=== PATIENT | male | born 1965 | race Caucasian/White ===

== ENCOUNTER 2020-11-06 14:43 | Emergency (ER) | payer OTHER ==
[2020-11-06 15:05] VITALS: BP 131/71; PULSE 83; TEMP 98.6; BMI 27.1
[2020-11-06] MEDS ORDERED: DEXAMETHASONE SOD PHOSPHATE 10 MG/1 ML VIAL IM ONE (15:48)
[2020-11-06] MEDS ORDERED: DEXAMETHASONE SOD PHOSPHATE 10 MG/1 ML VIAL ONE (15:50)
[2020-11-06 16:10] LABS: THROAT:GRP A STREP ANTIGEN Negative (Negative)
== END 2020-11-06 16:56 | disposition home or self-care (01) ==
LOC: EDBD → JER 14:43
PROC: 3E023GC Introduction of Other Therapeutic Substance into Muscle, Percutaneous Approach (ICD-10-PCS; principal; 2020-11-06)
DX: R07.0 Pain in throat (principal)
CPT/HCPCS: 87070; 87880; 99284-25; C9803; J1100; U0003

== ENCOUNTER 2020-11-07 21:00 | Emergency (ER) | payer OTHER ==
[2020-11-07 21:21] VITALS: BMI 25.7
[2020-11-07] MEDS ORDERED: SODIUM CHLORIDE 0.9% 500 ML INFUS.BAG IV ONE (21:44)
[2020-11-07] MEDS ORDERED: DEXAMETHASONE SOD PHOSPHATE 10 MG/1 ML VIAL IVPUSH ONE (21:45)
[2020-11-07] MEDS ORDERED: KETOROLAC TROMETHAMINE 30 MG/1 ML VIAL IVPUSH ONE (21:58)
[2020-11-07] MEDS ORDERED: KETOROLAC TROMETHAMINE 30 MG/1 ML VIAL ONE (22:17)
[2020-11-07] MEDS ORDERED: DEXAMETHASONE SOD PHOSPHATE 10 MG/1 ML VIAL ONE (22:17)
[2020-11-07] MEDS ORDERED: BAMLANIVIMAB 700 MG in SODIUM CHLORIDE 180 ML IVPB ONE (22:22)
[2020-11-07 22:39] LABS: BASO % 0.3 % (0-2.0); HEMATOCRIT 43.6 % (35.4-49); HEMOGLOBIN 14.3 GM/dL (11.7-16.9); LYMPH % 11.8 % (8-40); MCH 28.7 pg (25.7-33.7); MCHC 32.8 g/dl (32.0-35.9); MEAN CELL VOLUME 87.4 fl (80-96); MONO % 6.1 % (3.8-10.2); NEUT % 81.8 % (42.8-82.8); PLATELET COUNT 414 K/MM3 (134-434); RBC 4.99 M/mm3 (4.00-5.60); RDW 13.8 % (11.9-15.9); WHITE BLOOD COUNT 10.7 K/mm3 (4.0-10.0)
[2020-11-07 22:55] LABS: INR 1.06 (0.83-1.09)
[2020-11-07 22:57] LABS: CHLORIDE 110 mmol/L (98-107); POTASSIUM 5.3 mmol/L (3.5-5.1); SODIUM 144 mmol/L (136-145)
[2020-11-07 22:59] LABS: CALCIUM 10.6 mg/dL (8.5-10.1)
[2020-11-07 23:00] LABS: ANION GAP 13 MMOL/L (8-16); BLOOD UREA NITROGEN 37.3 mg/dL (7-18); CO2 21 mmol/L (21-32); MAGNESIUM 2.4 mg/dL (1.8-2.4)
[2020-11-07 23:02] LABS: CREATININE 1.1 mg/dL (0.55-1.3); SGOT/AST 41 U/L (15-37); SGPT/ALT 25 U/L (13-61)
[2020-11-07 23:04] LABS: BILIRUBIN,TOTAL 0.6 mg/dL (0.2-1); LDH 473 U/L (87-246); TOT PROT 8.4 g/dl (6.4-8.2)
[2020-11-07 23:05] LABS: ALK PHOS 114 U/L (45-117)
[2020-11-07 23:08] LABS: N-TERMINAL BNP 29.7 pg/ml (5-125)
[2020-11-07 23:13] LABS: GLUCOSE,RANDOM 634 mg/dL (74-106)
[2020-11-07] MEDS ORDERED: INSULIN REGULAR HUMAN 100 UNITS/ML *VIAL SQ ONE (23:18)
[2020-11-08 01:49] VITALS: BP 129/80; PULSE 78; TEMP 98.4
[2020-11-08] MEDS ORDERED: INSULIN REGULAR HUMAN 100 UNITS/ML *VIAL SQ ONE (02:52)
== END 2020-11-08 11:25 | disposition home or self-care (01) ==
LOC: EDBD → JER 21:00 → JERFT 21:00
PROC: 3E0333Z Introduction of Anti-inflammatory into Peripheral Vein, Percutaneous Approach (ICD-10-PCS; principal; 2020-11-07)
PROC: 3E033GC Introduction of Other Therapeutic Substance into Peripheral Vein, Percutaneous Approach (ICD-10-PCS; 2020-11-07)
DX: Z11.59 Encounter for screening for other viral diseases (principal)
CPT/HCPCS: 36415; 71046-TC-FY; 80053; 82550; 82728; 82962; 83615; 83735; 83880; 84484; 85025; 85379; 85610; 86140; 93005; 93010; 99285-25; J1100; M0239; Q0239

== ENCOUNTER 2022-10-05 13:51 | Inpatient (IN) | payer OTHER ==
[2022-10-05] MEDS ORDERED: SODIUM CHLORIDE 1,000 ML IV STA ×2 (14:25→15:55)
[2022-10-05] MEDS ORDERED: ACETAMINOPHEN 1000 MG/100 ML BAG IVPB ONE (14:25)
[2022-10-05 14:37] LABS: EOS % 0.3 % (0-4.5); HEMATOCRIT 47.5 % (35.4-49); HEMOGLOBIN 14.9 GM/dL (11.7-16.9); LYMPH % 30.3 % (8-40); MCH 28.1 pg (25.7-33.7); MCHC 31.5 g/dl (32.0-35.9); MEAN CELL VOLUME 89.4 fl (80-96); MEAN PLT VOLUME 10.7 fl (7.5-11.1); MONO % 6.3 % (3.8-10.2); NEUT % 62.1 % (42.8-82.8); PLATELET COUNT 301 10^3/uL (134-434); RBC 5.31 M/mm3 (4.00-5.60); RDW 14.5 % (11.9-15.9); VENOUS BASE EXCESS 4.7 mmol/L (-2-2); VENOUS O2 SATURATION 89.8 % (70-80); VENOUS PCO2 43.6 mmHg (38-52); VENOUS PH 7.447 (7.310-7.410); WHITE BLOOD COUNT 10.3 K/mm3 (4.0-10.0)
[2022-10-05] MEDS ORDERED: ACETAMINOPHEN INJECTION 100 ML IVPB ONE (14:47)
[2022-10-05 15:03] LABS: CHLORIDE 116 mmol/L (98-107); SODIUM 154 mmol/L (136-145)
[2022-10-05 15:09] LABS: SGOT/AST 25 U/L (15-37)
[2022-10-05 15:10] LABS: BILIRUBIN,TOTAL 0.4 mg/dL (0.2-1); TOT PROT 7.6 g/dl (6.4-8.2)
[2022-10-05 15:12] LABS: ALK PHOS 89 U/L (45-117)
[2022-10-05 15:21] LABS: CALCIUM 10.3 mg/dL (8.5-10.1)
[2022-10-05 15:22] LABS: ALBUMIN 3.3 g/dl (3.4-5.0); ANION GAP 9 MMOL/L (8-16); BLOOD UREA NITROGEN 33.5 mg/dL (7-18); CO2 29 mmol/L (21-32)
[2022-10-05 15:25] LABS: CREATININE 1.4 mg/dL (0.55-1.3); SGPT/ALT 29 U/L (13-61)
[2022-10-05 15:28] LABS: GLUCOSE,RANDOM 974 mg/dL (74-106)
[2022-10-05 16:15] LABS: MAGNESIUM 2.5 mg/dL (1.8-2.4)
[2022-10-05 16:24] LABS: CHLORIDE 121 mmol/L (98-107); SODIUM 159 mmol/L (136-145)
[2022-10-05 16:26] LABS: ANION GAP 7 MMOL/L (8-16); BLOOD UREA NITROGEN 33.3 mg/dL (7-18); CALCIUM 10.2 mg/dL (8.5-10.1); CO2 31 mmol/L (21-32)
[2022-10-05 16:30] LABS: CREATININE 1.2 mg/dL (0.55-1.3)
[2022-10-05] MEDS ORDERED: POTASSIUM CHLORIDE ORAL LIQUID 20 MEQ/15 ML PO ONE (16:33)
[2022-10-05 16:40] LABS: GLUCOSE,RANDOM 771 mg/dL (74-106)
[2022-10-05] MEDS ORDERED: POTASSIUM CHLORIDE ORAL LIQUID 20 MEQ/15 ML ONE (17:05)
[2022-10-05] MEDS ORDERED: INSULIN REGULAR HUMAN 100 UNITS/ML *VIAL IVPUSH ONE (17:12)
[2022-10-05 17:21] LABS: CHLORIDE 124 mmol/L (98-107)
[2022-10-05 17:22] LABS: CALCIUM 9.3 mg/dL (8.5-10.1)
[2022-10-05] MEDS ORDERED: OSELTAMIVIR PHOSPHATE 6 MG/1 ML PO ONE (17:22)
[2022-10-05 17:23] LABS: BLOOD UREA NITROGEN 30.6 mg/dL (7-18); CO2 30 mmol/L (21-32)
[2022-10-05 17:26] LABS: CREATININE 1.1 mg/dL (0.55-1.3)
[2022-10-05 17:32] LABS: ANION GAP 6 MMOL/L (8-16); GLUCOSE,RANDOM 699 mg/dL (74-106); SODIUM 161 mmol/L (136-145)
[2022-10-05] MEDS ORDERED: TAMSULOSIN HCL 0.4 MG CAP PO ONE (20:58)
[2022-10-05] MEDS ORDERED: INSULIN SLIDING SCALE (NOVOLOG) 1 VIAL SQ SCH ×3 (22:00)
[2022-10-05] MEDS ORDERED: TAMSULOSIN HCL 0.4 MG CAP ONE (22:00)
[2022-10-05] MEDS ORDERED: INSULIN REGULAR 100 UNITS in SODIUM CHLORIDE 99 ML IVPB SCH (22:30)
[2022-10-06] MEDS ORDERED: SODIUM CHLORIDE 0.45% 1,000 ML IV SCH (01:15)
[2022-10-06 01:39] LABS: BASO % 0.2 % (0-2.0); EOS % 1.6 % (0-4.5); HEMATOCRIT 46.7 % (35.4-49); LYMPH % 53.1 % (8-40); MCH 27.9 pg (25.7-33.7); MCHC 32.2 g/dl (32.0-35.9); MEAN CELL VOLUME 86.8 fl (80-96); MEAN PLT VOLUME 10.7 fl (7.5-11.1); MONO % 5.4 % (3.8-10.2); NEUT % 39.7 % (42.8-82.8); PLATELET COUNT 284 10^3/uL (134-434); RBC 5.38 M/mm3 (4.00-5.60); WHITE BLOOD COUNT 7.4 K/mm3 (4.0-10.0)
[2022-10-06] MEDS ORDERED: OSELTAMIVIR PHOSPHATE 75 MG CAPSULE PO ONE (01:45)
[2022-10-06 01:52] LABS: CHLORIDE 126 mmol/L (98-107)
[2022-10-06 01:53] LABS: CALCIUM 10.1 mg/dL (8.5-10.1)
[2022-10-06 01:54] LABS: BLOOD UREA NITROGEN 24.8 mg/dL (7-18); CO2 33 mmol/L (21-32); GLUCOSE,RANDOM 382 mg/dL (74-106)
[2022-10-06 01:57] LABS: CREATININE 0.9 mg/dL (0.55-1.3)
[2022-10-06 02:28] LABS: ANION GAP 6 MMOL/L (8-16); SODIUM 165 mmol/L (136-145)
[2022-10-06] MEDS ORDERED: INSULIN (LEVEMIR) 100 UNITS/ML UNITS SQ ONE (02:44)
[2022-10-06] MEDS ORDERED: KCL 10 MEQ IVPB 10 MEQ/100 ML INFUS.BAG IVPB SCH (03:15)
[2022-10-06] MEDS ORDERED: INSULIN SLIDING SCALE (NOVOLOG) 1 VIAL SQ SCH (06:31)
[2022-10-06] MEDS ORDERED: MUPIROCIN 2% TOPICAL OINTMENT FOR DECOLONIZATION NS SCH (10:00)
[2022-10-06] MEDS ORDERED: ENOXAPARIN NA (PORCINE) 40 MG/0.4 ML DISP.SYRIN SQ SCH (10:00)
[2022-10-06] MEDS ORDERED: OSELTAMIVIR PHOSPHATE 75 MG CAPSULE PO SCH (11:00)
[2022-10-06] MEDS: INSULIN SLIDING SCALE (NOVOLOG) 1 VIAL SQ SCH ×3 (11:27→22:15)
[2022-10-06 12:36] LABS: BASO % 0.7 % (0-2.0); EOS % 3.2 % (0-4.5); HEMATOCRIT 46.1 % (35.4-49); HEMOGLOBIN 14.5 GM/dL (11.7-16.9); LYMPH % 44.5 % (8-40); MCH 27.2 pg (25.7-33.7); MCHC 31.5 g/dl (32.0-35.9); MEAN CELL VOLUME 86.6 fl (80-96); MEAN PLT VOLUME 11.3 fl (7.5-11.1); MONO % 6.8 % (3.8-10.2); NEUT % 44.8 % (42.8-82.8); PLATELET COUNT 253 10^3/uL (134-434); RBC 5.32 M/mm3 (4.00-5.60); RDW 13.8 % (11.9-15.9); WHITE BLOOD COUNT 6.5 K/mm3 (4.0-10.0)
[2022-10-06 12:54] LABS: CHLORIDE 130 mmol/L (98-107)
[2022-10-06 12:56] LABS: ALBUMIN 3.1 g/dl (3.4-5.0); BLOOD UREA NITROGEN 22.6 mg/dL (7-18); CALCIUM 9.9 mg/dL (8.5-10.1); CO2 29 mmol/L (21-32); GLUCOSE,RANDOM 263 mg/dL (74-106); MAGNESIUM 2.4 mg/dL (1.8-2.4)
[2022-10-06 13:00] LABS: CREATININE 0.6 mg/dL (0.55-1.3); PHOSPHOROUS 3.2 mg/dL (2.5-4.9); SGOT/AST 22 U/L (15-37); SGPT/ALT 26 U/L (13-61)
[2022-10-06 13:01] LABS: BILIRUBIN,TOTAL 0.4 mg/dL (0.2-1); TOT PROT 6.9 g/dl (6.4-8.2)
[2022-10-06 13:03] LABS: ALK PHOS 76 U/L (45-117)
[2022-10-06 13:10] LABS: ANION GAP 6 MMOL/L (8-16); SODIUM 165 mmol/L (136-145)
[2022-10-06] MEDS ORDERED: REMDESIVIR 200 MG in SODIUM CHLORIDE 250 ML IVPB ONE (14:00)
[2022-10-06] MEDS ORDERED: CHLORHEXIDINE GLUCONATE 4% CLEANSER FOR DECOLONIZATION TP SCH (22:00)
[2022-10-06] MEDS: INSULIN (LEVEMIR) 100 UNITS/ML UNITS SQ SCH (22:13)
[2022-10-06] MEDS: OSELTAMIVIR PHOSPHATE 75 MG CAPSULE PO SCH (22:17)
[2022-10-07 05:21] LABS: ANION GAP 13 MMOL/L (8-16); CALCIUM 9.7 mg/dL (8.5-10.1); CHLORIDE 136 mmol/L (98-107); CO2 19 mmol/L (21-32); CREATININE 0.7 mg/dL (0.55-1.3); GLUCOSE,RANDOM 306 mg/dL (74-106); SODIUM 168 mmol/L (136-145)
[2022-10-07] MEDS: INSULIN SLIDING SCALE (NOVOLOG) 1 VIAL SQ SCH ×4 (08:07→17:39)
[2022-10-07] MEDS ORDERED: SODIUM CHLORIDE 0.45% 1,000 ML IV SCH (08:45)
[2022-10-07] MEDS: OSELTAMIVIR PHOSPHATE 75 MG CAPSULE PO SCH ×2 (09:36→21:17)
[2022-10-07] MEDS: ENOXAPARIN NA (PORCINE) 40 MG/0.4 ML DISP.SYRIN SQ SCH (09:36)
[2022-10-07 09:55] LABS: CALCIUM 9.4 mg/dL (8.5-10.1)
[2022-10-07 09:56] LABS: BLOOD UREA NITROGEN 22.7 mg/dL (7-18)
[2022-10-07 09:59] LABS: CREATININE 0.7 mg/dL (0.55-1.3)
[2022-10-07 12:38] LABS: CALCIUM 9.4 mg/dL (8.5-10.1)
[2022-10-07 12:42] LABS: CREATININE 0.6 mg/dL (0.55-1.3)
[2022-10-07] MEDS ORDERED: DEXTROSE 50%-WATER - 25 GM/50 ML VIAL IVPUSH PRN (13:10)
[2022-10-07] MEDS ORDERED: INSULIN (LEVEMIR) 100 UNITS/ML UNITS SQ ONE ×2 (13:15→14:23)
[2022-10-07] MEDS ORDERED: REMDESIVIR 100 MG in SODIUM CHLORIDE 250 ML IVPB SCH (14:00)
[2022-10-07 16:06] LABS: CALCIUM 9.1 mg/dL (8.5-10.1)
[2022-10-07 16:07] LABS: BLOOD UREA NITROGEN 28.1 mg/dL (7-18)
[2022-10-07 16:10] LABS: CREATININE 0.8 mg/dL (0.55-1.3)
[2022-10-07 17:12] VITALS: RESP 20
[2022-10-07 18:49] LABS: BLOOD UREA NITROGEN 26.9 mg/dL (7-18); CALCIUM 8.9 mg/dL (8.5-10.1)
[2022-10-07 18:52] LABS: CREATININE 0.7 mg/dL (0.55-1.3)
[2022-10-07 19:37] VITALS: BMI 26.1
[2022-10-07 20:23] LABS: BLOOD UREA NITROGEN 22.4 mg/dL (7-18); CALCIUM 9.2 mg/dL (8.5-10.1)
[2022-10-07 20:27] LABS: CREATININE 0.6 mg/dL (0.55-1.3)
[2022-10-07] MEDS: INSULIN (LEVEMIR) 100 UNITS/ML UNITS SQ SCH (21:16)
[2022-10-07 21:39] LABS: URINE APPEARANCE CLEAR; URINE BILIRUBIN NEGATIVE (NEGATIVE); URINE COLOR YELLOW; URINE GLUCOSE (UA) TRACE (NEGATIVE); URINE KETONE NEGATIVE (NEGATIVE); URINE LEUK ESTERASE NEGATIVE (NEGATIVE); URINE NITRITE NEGATIVE (NEGATIVE); URINE PROTEIN NEGATIVE (NEGATIVE)
[2022-10-07 21:58] LABS: CALCIUM 8.8 mg/dL (8.5-10.1)
[2022-10-07 22:01] LABS: CREATININE 0.7 mg/dL (0.55-1.3)
[2022-10-08] MEDS: INSULIN (LEVEMIR) 100 UNITS/ML UNITS SQ SCH ×2 (06:04→21:52)
[2022-10-08] MEDS: INSULIN SLIDING SCALE (NOVOLOG) 1 VIAL SQ SCH ×3 (06:05→16:45)
[2022-10-08] MEDS ORDERED: INSULIN SLIDING SCALE (NOVOLOG) 1 VIAL SQ SCH (07:00)
[2022-10-08] MEDS ORDERED: INSULIN (NOVOLOG) ASPART 100 UNITS/ML 10ML VIAL ONE (10:51)
[2022-10-08] MEDS: OSELTAMIVIR PHOSPHATE 75 MG CAPSULE PO SCH ×2 (11:12→21:53)
[2022-10-08 11:15] LABS: BASO % 0.6 % (0-2.0); EOS % 4.8 % (0-4.5); HEMATOCRIT 40.7 % (35.4-49); HEMOGLOBIN 13.1 GM/dL (11.7-16.9); LYMPH % 37.4 % (8-40); MCH 27.5 pg (25.7-33.7); MCHC 32.1 g/dl (32.0-35.9); MEAN CELL VOLUME 85.7 fl (80-96); MEAN PLT VOLUME 10.6 fl (7.5-11.1); MONO % 5.1 % (3.8-10.2); NEUT % 52.1 % (42.8-82.8); PLATELET COUNT 201 10^3/uL (134-434); RBC 4.74 M/mm3 (4.00-5.60); RDW 13.4 % (11.9-15.9)
[2022-10-08 11:33] LABS: ALBUMIN 2.8 g/dl (3.4-5.0); BLOOD UREA NITROGEN 18.6 mg/dL (7-18); CALCIUM 9.2 mg/dL (8.5-10.1); MAGNESIUM 2.3 mg/dL (1.8-2.4)
[2022-10-08 11:35] LABS: CREATININE 0.6 mg/dL (0.55-1.3)
[2022-10-08 11:37] LABS: BILIRUBIN,TOTAL 0.4 mg/dL (0.2-1); PHOSPHOROUS 2.4 mg/dL (2.5-4.9); TOT PROT 6.2 g/dl (6.4-8.2)
[2022-10-08] MEDS: ENOXAPARIN NA (PORCINE) 40 MG/0.4 ML DISP.SYRIN SQ SCH (11:38)
[2022-10-08] MEDS: POTASSIUM CHLORIDE 10 MEQ in SODIUM CHLORIDE 0.45% 1,000 ML IVPB SCH (16:41)
[2022-10-08] MEDS ORDERED: SODIUM CHLORIDE 0.45% 1,000 ML IV SCH (19:30)
[2022-10-09] MEDS: POTASSIUM CHLORIDE 10 MEQ in SODIUM CHLORIDE 0.45% 1,000 ML IVPB SCH ×2 (02:12→15:58)
[2022-10-09 06:42] VITALS: BP 128/78; PULSE 63; TEMP 97.8
[2022-10-09] MEDS: INSULIN (LEVEMIR) 100 UNITS/ML UNITS SQ SCH (06:51)
[2022-10-09] MEDS: INSULIN SLIDING SCALE (NOVOLOG) 1 VIAL SQ SCH ×3 (06:51→17:15)
[2022-10-09] MEDS: ENOXAPARIN NA (PORCINE) 40 MG/0.4 ML DISP.SYRIN SQ SCH (09:48)
[2022-10-09] MEDS: OSELTAMIVIR PHOSPHATE 75 MG CAPSULE PO SCH (09:49)
[2022-10-09 12:02] LABS: BASO % 0.4 % (0-2.0); EOS % 7.3 % (0-4.5); HEMATOCRIT 27.5 % (35.4-49); HEMOGLOBIN 8.8 GM/dL (11.7-16.9); LYMPH % 44.5 % (8-40); MCH 27.6 pg (25.7-33.7); MCHC 32.1 g/dl (32.0-35.9); MEAN CELL VOLUME 85.8 fl (80-96); MONO % 6.1 % (3.8-10.2); NEUT % 41.7 % (42.8-82.8); PLATELET COUNT 117 10^3/uL (134-434); RBC 3.21 M/mm3 (4.00-5.60); RDW 13.2 % (11.9-15.9); WHITE BLOOD COUNT 4.3 K/mm3 (4.0-10.0)
[2022-10-09 15:01] LABS: ALBUMIN 2.7 g/dl (3.4-5.0); CALCIUM 8.7 mg/dL (8.5-10.1); MAGNESIUM 2.1 mg/dL (1.8-2.4)
[2022-10-09 15:02] LABS: BLOOD UREA NITROGEN 17.5 mg/dL (7-18)
[2022-10-09 15:04] LABS: CREATININE 0.5 mg/dL (0.55-1.3)
[2022-10-09 15:05] LABS: PHOSPHOROUS 2.5 mg/dL (2.5-4.9)
[2022-10-09 15:06] LABS: BILIRUBIN,TOTAL 0.4 mg/dL (0.2-1); TOT PROT 5.9 g/dl (6.4-8.2)
[2022-10-09] MEDS ORDERED: INSULIN (NOVOLOG) ASPART 100 UNITS/ML 10ML VIAL ONE ×2 (17:11→17:27)
== END 2022-10-09 18:57 | disposition home or self-care (01) | DRG 638 ==
LOC: JER 13:51 → JERBED 14:44 → JICU 10-06 04:39 → J8W 10-06 17:30
PROVIDERS: ADMIT Internal Medicine Pulmonary Disease; ATTEND Internal Medicine
DX: E11.65 Type 2 diabetes mellitus with hyperglycemia (principal); E87.0 Hyperosmolality and hypernatremia; I10 Essential (primary) hypertension; J10.1 Influenza due to other identified influenza virus with other respiratory manifestations; R29.6 Repeated falls; E86.0 Dehydration; Z91.199 Patient's noncompliance with other medical treatment and regimen due to unspecified reason
CPT/HCPCS: 0241U-QW; 36415; 70450-TC; 71045-TC-FY; 72125-TC; 72128-TC; 72131-TC; 76775-TC; 80048; 80053; 81003; 82010; 82550; 82803; 82962; 83735; 84100; 84443; 85025; 87086; 93005; 93010; 99285-25; C9399

== ENCOUNTER 2022-10-29 15:19 | Emergency (ER) | payer OTHER ==
[2022-10-29 15:24] VITALS: BP 135/78; PULSE 75; RESP 18; TEMP 97.8; BMI 27.8
[2022-10-29] MEDS ORDERED: METHOCARBAMOL 500 MG TABLET PO ONE (15:54)
[2022-10-29] MEDS ORDERED: KETOROLAC TROMETHAMINE 30 MG/1 ML VIAL IM ONE (15:54)
[2022-10-29] MEDS ORDERED: METHOCARBAMOL 500 MG TABLET ONE (16:53)
[2022-10-29] MEDS ORDERED: KETOROLAC TROMETHAMINE 30 MG/1 ML VIAL ONE (16:54)
== END 2022-10-29 18:00 | disposition home or self-care (01) ==
LOC: JER 15:19
PROC: 3E0233Z Introduction of Anti-inflammatory into Muscle, Percutaneous Approach (ICD-10-PCS; principal; 2022-10-29)
DX: M54.6 Pain in thoracic spine (principal)
CPT/HCPCS: 72128-TC; 72131-TC; 99284-25